=== PATIENT | female | born 1940 | race Caucasian/White ===

== ENCOUNTER 2018-12-23 10:53 | Day surgery (SDC) | payer MEDICARE, OTHER ==
[2018-12-23] VITALS (7 sets, daily range): BP systolic 123–152; BP diastolic 49–112
[~2018-12-23] VITALS: Ht 160 cm; Wt 70.1 kg
[2018-12-23] MEDS ORDERED: normal saline 1000ml 1,000 ML IV PRN (11:20)
[2018-12-23] MEDS ORDERED: MULT-1085 PO (11:42)
[2018-12-23] MEDS ORDERED: CALC-1197 PO (11:42)
[2018-12-23] MEDS ORDERED: LACT1CAP65 PO (11:42)
[2018-12-23] MEDS ORDERED: METO25TA6 PO (11:42)
[2018-12-23] MEDS ORDERED: METH500T6 PO (11:42)
[2018-12-23] MEDS ORDERED: ACID1TAB2 PO (11:42)
[2018-12-23] MEDS ORDERED: SIMV20TA5 PO (11:42)
[2018-12-23] MEDS ORDERED: FISH12002 PO (11:42)
[2018-12-23] MEDS ORDERED: UBID100T7 PO (11:42)
[2018-12-23] MEDS ORDERED: KRIL500C PO (11:42)
[2018-12-23] MEDS ORDERED: FLAX1CAP6 PO (11:42)
[2018-12-23] MEDS ORDERED: ASPI81TA52 PO (11:42)
[2018-12-23] MEDS ORDERED: NITR0.4T51 SL (11:42)
[2018-12-23] MEDS ORDERED: CRAN300T PO (11:42)
[2018-12-23] MEDS ORDERED: CHOL10002 PO (11:42)
[2018-12-23 11:56] LABS: BASOPHILS % (AUTO) 0.5 % (0-1); EOSINOPHILS # (AUTO) 0.2 X10'3 (0-0.9); EOSINOPHILS % (AUTO) 3.3 % (0-6); HEMATOCRIT 46.7 % (35.0-45.0); HEMOGLOBIN 16.1 g/dl (12.0-16.0); LYMPHOCYTES # (AUTO) 2.9 X10'3 (1.1-4.8); MEAN CORPUSCULAR HEMOGLOBIN 32.8 PG (27.0-31.0); MEAN CORPUSCULAR HGB CONC 34.4 g/dL (33.0-36.5); MEAN CORPUSCULAR VOLUME 95.3 FL (78-98); MEAN PLATELET VOLUME 8.6 FL (7.4-10.4); MONOCYTES # (AUTO) 0.4 X10'3 (0-0.9); MONOCYTES % (AUTO) 6.1 % (2-12); NEUTROPHILS % (AUTO) 46.1 % (42-75); PLATELET COUNT 188 X10'3 (140-440); WHITE BLOOD COUNT 6.5 X10'3 (4.5-11.0)
[2018-12-23 12:05] LABS: ANION GAP 8 (8-16); BLOOD UREA NITROGEN 15 MG/DL (7-18); BUN/CREATININE RATIO 20.3 (6.6-38.0); CALCIUM 9.1 MG/DL (8.5-10.1); CHLORIDE 108 MMOL/L (99-107); CREATININE 0.74 MG/DL (0.40-0.90); GLUCOSE 102 MG/DL (70-104); POTASSIUM 4.2 MMOL/L (3.5-5.1); SODIUM 143 MMOL/L (135-145); TOTAL CARBON DIOXIDE 27.2 MMOL/L (24-32); eGFR 76 ML/MIN
[2018-12-23 12:06] LABS: ALBUMIN 4.1 G/DL (3.4-5.0)
[2018-12-23] MEDS ORDERED: LIDOcaine 1%/PF 5ML 10 MG/ML VIAL SQ ONE ×2 (13:05→13:15)
[2018-12-23] MEDS ORDERED: fentaNYL/PF 50MCG/1 ML 2ML syringe IV PRN (13:05)
[2018-12-23] MEDS ORDERED: midazolam 2 mg/2 ml injection IV PRN (13:05)
[2018-12-23] MEDS ORDERED: fentaNYL/PF 50MCG/1 ML 2ML syringe ONE (13:19)
[2018-12-23] MEDS ORDERED: midazolam 2 mg/2 ml injection ONE (13:19)
== END 2018-12-23 14:45 | disposition home or self-care (01) ==
LOC: SSTAY O 10:53
PROVIDERS: ATTEND Radiology Diagnostic Radiology
DX: C91.10 Chronic lymphocytic leukemia of B-cell type not having achieved remission (principal); I10 Essential (primary) hypertension; R22.1 Localized swelling, mass and lump, neck; N60.12 Diffuse cystic mastopathy of left breast; N60.11 Diffuse cystic mastopathy of right breast; I83.93 Asymptomatic varicose veins of bilateral lower extremities
CPT/HCPCS: 36415; 38505; 77012; 80048; 85025; J2250; J3010; J7030; 20206; 88305; 88341; 88342